=== PATIENT | female | born 1990 | race African-American/Black ===

== ENCOUNTER 2020-02-10 12:35 | Emergency (ER) | payer OTHER ==
[~2020-02-10] VITALS: Ht 154.9 cm; Wt 45.4 kg
[2020-02-10 13:21] LABS: PLATELET COUNT 224 K/uL (152-353)
[2020-02-10 14:18] VITALS: BP 100/69; TEMP 98.4
== END 2020-02-10 14:19 | disposition home or self-care (01) ==
LOC: ED 12:35
PROVIDERS: Family Medicine
DX: O03.6 Delayed or excessive hemorrhage following complete or unspecified spontaneous abortion (principal); Z3A.01 Less than 8 weeks gestation of pregnancy
CPT/HCPCS: 84702; 85027; 85610; 99284